=== PATIENT | female | born 1990 | race Hispanic/Latino ===

== ENCOUNTER 2018-03-19 03:26 | Inpatient (IN) | payer BC ==
--- NOTE | 2018-03-19 03:29 | C.PDOC ---
History Of Present Illness patient was seen and medically cleared at [facility]. and was accepted in transfer by dr farmer. denies any suicidal or homicidal ideation as of now Time Seen by Provider: 03/19/18 03:28 Chief Complaint (Nursing): Psychiatric Evaluation History Per: Patient History/Exam Limitations: no limitations Onset/Duration Of Symptoms: Days Current Symptoms Are (Timing): Still Present Suicide/Self Injury Attempted (Context): None Modifying Factor(s): None Severity: Moderate Pain Scale Rating Of: 4 Associated Symptoms: Depression Involuntary Hold By: None Recent travel outside of the [place]: No Additional History Per: Patient Past Medical History Reviewed: Historical Data, Nursing Documentation, Vital Signs Family History: States: No Known Family Hx Review Of Systems Constitutional: Negative for: Fever, Chills Cardiovascular: Negative for: Chest Pain Respiratory: Negative for: Shortness of Breath Gastrointestinal: Negative for: Abdominal Pain Musculoskeletal: Negative for: Back Pain Skin: Negative for: Rash Neurological: Negative for: Weakness Psych: Positive for: Depression Physical Exam - Physical Exam Appears: Non-toxic, No Acute Distress Skin: Warm, Dry Chest: Symmetrical Cardiovascular: Rhythm Regular Respiratory: No Rales, No Rhonchi, No Wheezing Gastrointestinal/Abdominal: Soft, No Tenderness, Other (obese) Extremity: Normal ROM Neurological/Psych: Oriented x3 Gait: Steady ED Course And Treatment O2 Sat by Pulse Oximetry: 97 Pulse Ox Interpretation: Normal Disposition Discussed With : Khadijah Farmer Comment: accepted the pt on his service and took over the care at 3:41 AM Doctor Will See Patient In The: Hospital Counseled Patient/Family Regarding: Studies Performed, Diagnosis - Disposition Disposition: HOSPITALIZED Disposition Time: 03:29 Condition: FAIR Forms: [facility] ([place]) - POA Present On Arrival: None - Clinical Impression Clinical Impression: Major depression Decision To Admit - Pt Status Changed To: Hospital Disposition Of: Inpatient - Admit Certification Admit to Inpatient:: After my assessment, the patient will require hospitalization for at least two midnights. This is because of the severity of symptoms shown, intensity of services needed, and/or the medical risk in this patient being treated as an outpatient. - InPatient: Physician Admission Certification: I certify that this patient requires 2 or more midnights of care for the following reason:: After my assessment, the patient will require hospitalization for at least two midnights. This is because of the severity of symptoms shown, intensity of services needed, and/or the medical risk in this patient being treated as an outpatient. - . Bed Request Type: Psychiatry Admitting Physician: Khadijah Farmer Patient Diagnosis: Major depression
[2018-03-19 03:32] VITALS: O2SAT 97
[2018-03-19 03:40] VITALS: BMI 41.3
--- NOTE | 2018-03-19 05:54 | PCM.BM ---
<Maya Chadwick - Last Filed: 03/19/18 05:53> Treatment Plan Problems - Problems identified on initial assessmt Suicidal Ideation Date Initiated: 03/19/18 Time Initiated: 04:35 Assessment reference: NA Status: Active Depression Date Initiated: 03/19/18 Time Initiated: 04:35 Assessment reference: NA Status: Active Treatment assets and liabiliti Patient Assests: ADL independent, good support system Patient Liabilities: medical problems - Milieu Protocol Maintain good personal hygiene: daily Encourage regular showers, daily Remind patient to perform daily oral care, every shift Assist patient to perform ADL's Conduct patient checks and document Observation sheet: Q15 minutes Maintain personal safety: every shift Educate patient to report safety concerns to staff, every shift Monitor environment for contraband/sharps Medication safety: Monitor for expected outcome, potential side effects: every shift, Assess barriers to learning: every shift, Assess readiness for medication education: every shift <Swati Persaud - Last Filed: 03/19/18 14:34> Family Contact Family involvement: Patient does not wish Family/SO involvement Family contact: Patient declines to allow family contact at present - Goals for Treatment Patient goals for treatment: "I want to go to an outpatient program." Discharge/Continuing Care - Education Needs Education Needs: Patient Medication, Patient Diagnosis/Disease Process, Patient Coping Skills, Patient Placement options, Patient Community resources - Discharge Discharge Criteria: Normal sleep pattern, Ability to care for self, Reduction of target symptoms Discharge to:: Home, With Family - Treatment Team Participation Discussed with Family/SO: No Was Patient/Family/SO present at Treatment Team Meeting: Yes
[2018-03-19 06:42] VITALS: RESP 20
--- NOTE | 2018-03-19 20:03 | PCM.PSYCH ---
Initial Psychiatric Evaluation - Initial Psychiatric Evaluation Type of Admission: Voluntary Legal Status: Capacity Chief Complaint (in patient's own words): I was very sad for last few days. I called crisis and they suggested to go to the hospital History of Present Illness and Precipitating Events: Patient is a 27 years old, single, employed, female with history of depression since 14 years of age, increased in intensity for last 1 week, decreased sleep and feeling tired, increased appetite and gained about 20 pounds within last 2 months. Denied any current or past suicidal or homicidal ideations, no suicidal attempt. Reported feeling guilty after seeing patients dying from cancer as patient survived cancer. Also reported feeling hopeless and helpless at times and cry frequently. Patient denied any anxiety, manic or ps ychotic features. Patient reported she saw a therapist once at 14 years of age in her school. No previous history of inpatient psychiatric admissions. She started using cannabis at 16 years of age, was using 1-2 times per month, one joint each time. Last used reported more than one month ago. Patient quit smoking in August 2016. Patient is allergic to naproxen and ergotamines. Patient was born in [place], has high school graduation, is working. Patient is single and has no children. Lives with her fianc. Her height is 5 feet 9 inches and weight is 275 pounds. Current Medications: Active Medications Generic Name Dose Route Start Last Admin Trade Name Freq PRN Reason Stop Dose Admin Duloxetine HCl 30 mg 03/19/18 18:00 03/19/18 17:42 Cymbalta PO 30 mg BID DEBBIE Administration Haloperidol 5 mg 03/19/18 15:17 Haldol PO Q6 PRN Agitation Hydroxyzine HCl 50 mg 03/19/18 15:17 Atarax PO Q6 PRN Anxiety Influenza Virus Vaccine 60 mcg 03/22/18 10:00 Fluzone Quad [id number] IM 03/22/18 10:01 .ONCE ONE Pneumococcal Polyvalent Vaccine 0.5 ml 03/22/18 10:00 Pneumovax 23 Vaccine IM 03/22/18 10:01 .ONCE ONE Trazodone HCl 100 mg 03/19/18 22:00 Desyrel PO HS DEBBIE Past Psychiatric History - Past Psychiatric History Previous Treatment History: None History of Abuse: None reported History of ETOH/Drug Use: See HPI History of Family Illness: Reported history of alcohol use in 2 maternal uncles and history of depression in one maternal uncle. Pertinent Medical Hx (Current Medical&Sleep Prob, Allergies): Allergies Allergy/AdvReac Type Severity Reaction Status Date / Time No Known Allergies Allergy Verified 03/19/18 03:29 No Known Home Med 03/19/18 Non-Hodgkin's lymphoma, patient is a survivor of non-Hodgkin's lymphoma after chemotherapy. Migraine headache. Obesity Review of Systems - Psychiatric Psychiatric: As Per HPI, Depression, Hopelessness Mental Status Examination - Personal Presentation Personal Presentation: Looks stated age - Affect Affect: Depressed (Tearful) - Motor Activity Motor Activity: Calm - Reliability in Providing Information Reliability in Providing Information: Fair - Speech Speech: Organized - Mood Mood: Depressed - Formal Thought Process Formal Thought Process: No Impairment Additional comments: None - Hallucinations/Delusions Hallucinations: Other (None reported) Delusions: Other - Obsessions/Compulsions Obsessions: None Compulsions: None - Cognitive Functions Orientation: Person, Place, Situation, Time Sensorium: Alert Attention/Concentration: Attentive Abstract Thinking: [place] Estimate of Intelligence: Average Judgement: Intact, as evidence by: Insight regarding need for hospitalization Memory: Recent intact, as evidence by: 3/3 object recall, Remote intact, as evidenced by: Ability to recall historical events - Risk Risk: Diminished functioning - Strength & Assets Inventory Strength & Assets Inventory: Employment history, Cooperative - Limitations Limitations: Other (Lives with fianc) DSM 5 DX - DSM 5 DSM 5 Diagnosis: Major depressive disorder recurrent severe without psychotic features. 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 Supportive therapy. We'll start Cymbalta for depression and fibromyalgia. Other when necessary medications. Patient will speak with social welfare administrator to find a follow-up care. Projected ELOS: 8-10 days - Smoking Cessation Smoking Cessation Initiated: No Reason for not providing: Patient doesn't smoke cigarettes
[2018-03-19] MEDS: Vitamins A & D Oint UD Foilpak TOP SCH (21:23)
[2018-03-20] MEDS: Vitamins A & D Oint UD Foilpak TOP SCH (00:37)
[2018-03-20] MEDS ORDERED: Vitamins A & D Oint UD Foilpak TOP PRN (01:37)
--- NOTE | 2018-03-20 17:53 | PCM.PYCHPN ---
Psychiatric Progress Note - Psychiatric Progress Note Patient seen today, length of contact: 15 minutes Patient Chief Complaint: I'm feeling little better. Problems Identified/Issues Discussed: Patient seen, chart reviewed, case discussed with the staff. Issues related to illness and treatment were discussed with the patient and staff. Reported compliant with treatment with no adverse affects. Tolerating treatment very well. Patient reported feeling little better. Patient signed 48 hour notice for discharge on 03/19/2018. Discussed with patient about treatment. Patient agreed but still wants to leave before and of 48 hours. Tomorrow we'll discuss with orlando sawyer again to stay and complete treatment. If still patient refused and stable will discharge. Calm and partially cooperative. Awake, alert and oriented 3. No psychomotor activity, good eye contact, memory intact. Aftercare discussed with the patient. Denied any delusions, auditory or visual hallucinations, suicidal ideations or homicidal ideations at the time of evaluation. Medical Problems: Survivor of non-Hodgkin's lymphoma. Migraine headache Fibromyalgia Obesity. Diagnostic Results: Reviewed DSM 5 Symptoms Update: Some improvement with treatment Medication Change: No Medical Record Reviewed: Yes Mental Status Examination - Cognitive Function Orientation: Person, Place, Situation, Time Memory: Intact Attention: WNL Concentration: WNL Association: [facility] Fund of Knowledge: [facility] Decription of patient's judgement and insights: Poor - Mood Mood: Depressed - Affect Affect: Depressed (Still tearful but less than before.) - Speech Speech: Appropriate - Formal Thought Process Formal Thought Process: No Impairment Psychotic Thoughts and Behaviors: None - Suicidal Ideation Suicidal Ideation: No - Homicidal Ideation Homicidal Ideation: No Goal/Treatment Plan - Goal/Treatment Plan Need for Continued Stay: Remain at risks for inpatient hospitalization, Discharge may exacerbated symptoms, Severe functional impairment Progress Toward Problem(s) and Goals/Treatment Plan: Patient/staff education. Supportive therapy. Continue treatment as before. Estimated Date of D/C: 03/24/18 - Smoking Cessation Smoking Cessation Initiated: No Reason for not providing: Patient doesn't smoke cigarettes
[2018-03-21 06:46] VITALS: TEMP 98.6
[2018-03-21 08:38] VITALS: BP 116/83; PULSE 120
--- NOTE | 2018-03-21 19:25 | PCM.PYCHDC ---
Mental Status Examination - Mental Status Examination Description of patient's judgement and insight: Poor Psychotic Thoughts and Behaviors: None Discharge Summary - Discharge Note Reason for Hospitalization: Major depressive disorder recurrent severe without psychotic features. 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 Reason for request. 2. Findings. 3. Follow-up Summary of Hospital Course include:: 1. Description of specific treatment plan utilized for patients during their course of treatmen. 2. Summarize the time- course for resolution of acute symptoms and/or regressed behaviors. 3. Describe issues identified and worked on during hospitalization. 4. Describe medication utilized. 5. Describe medical problems identified and treated. 6. Reassessment of suicide risk Summary of Hospital Course: Patient is a 27 years old, single, employed, female with history of depression since 14 years of age, increased in intensity for last 1 week, decreased sleep and feeling tired, increased appetite and gained about 20 pounds within last 2 months. Denied any current or past suicidal or homicidal ideations, no suicidal attempt. Reported feeling guilty after seeing patients dying from cancer as patient survived cancer. Also reported feeling hopeless and helpless at times and cry frequently. Patient denied any anxiety, manic or psychotic features. Patient reported she saw a therapist once at 14 years of age in her school. No previous history of inpatient psychiatric admissions. She started using cannabis at 16 years of age, was using 1-2 times per month, one joint each time. Last used reported more than one month ago. Patient quit smoking in August 2016. Patient is allergic to naproxen and ergotamines. Patient was born in [place], has high school graduation, is working. Patient is single and has no children. Lives with her fianc. Her height is 5 feet 9 inches and weight is 275 pounds. - Final Diagnosis (DSM 5) Condition upon Discharge: FAIR Disposition: HOME/ ROUTINE Follow-up Treatment Plan: Patient/staff education. Supportive therapy. Continue treatment as before. Prescriptions/Medication Reconciliation: DULoxetine [Cymbalta] 30 mg PO BID #60 ecc traZODone [Desyrel] 100 mg PO HS #60 tab
[2018-03-22] MEDS ORDERED: Pneumococcal 23-Valent Vaccine IM ONE (10:00)
[2018-03-22] MEDS ORDERED: Influenza Vaccine 60 MCG/0.5 ML SYR (3 yr & up) IM ONE (10:00)
== END 2018-03-21 13:36 | disposition home or self-care (01) | DRG 885 ==
LOC: C.ER 03:26 → C.5E 03:40
PROVIDERS: ADMIT Psychiatry & Neurology Psychiatry; ATTEND Psychiatry & Neurology Psychiatry
DX: F33.2 Major depressive disorder, recurrent severe without psychotic features (principal); E66.9 Obesity, unspecified; F12.90 Cannabis use, unspecified, uncomplicated; F39 Unspecified mood [affective] disorder; M79.7 Fibromyalgia; G43.909 Migraine, unspecified, not intractable, without status migrainosus; Z87.891 Personal history of nicotine dependence; Z81.8 Family history of other mental and behavioral disorders; Z85.72 Personal history of non-Hodgkin lymphomas